=== PATIENT | male | born 1965 | race Caucasian/White ===

== ENCOUNTER 2017-06-17 11:24 | Emergency (ER) | payer OTHER ==
[~2017-06-17] VITALS: Ht 188 cm; Wt 82.6 kg
[~2017-06-17 11:24] MED LIST: ELIMITE5% TOP; TRIAMCINOL0.1 %/453 TOP
--- NOTE | 2017-06-17 12:15 | CT SCAN REPORT ---
EXAMINATION: CT HEAD WITHOUT CONTRAST CLINICAL INFORMATION: Severe headache right side. COMPARISON: Brain MRI 12/18/2008. TECHNIQUE: Contiguous axial imaging was performed from the skull base to vertex without intravenous administration of contrast. The study is degraded by [id number] motion artifact. DLP: 629 mGy-cm. FINDINGS: There is no intracranial hemorrhage, large infarction, or mass lesion. There is no mass effect or midline shift. There is no extra-axial collection. There is mild scattered and patchy hypoattenuation in the bilateral cerebral white matter, which is nonspecific but likely reflects small vessel disease. More focal patchy hypoattenuation in the right inferior parietal lobule may represent an old subcortical infarct. A polypoid lesion within the right nasal cavity measuring 1.3 cm and is most typical of a polyp and was also present in 2008. The paranasal sinuses and mastoid air cells are otherwise clear. There are atherosclerotic calcification of the carotid siphons and vertebral arteries. On the tube bender image there is evidence of prior anterior cervical discectomy and fusion spanning C5-C7. IMPRESSION: 1. No acute intracranial abnormality identified. 2. Mild small vessel ischemic changes. 3. Stable appearance of 1.3 cm polyp within the right nasal cavity.
[2017-06-17] MEDS ORDERED: CITALOPRAM HBR40 MG PO (13:00)
[2017-06-17] MEDS ORDERED: SIMVASTATIN40 M1 PO (13:00)
[2017-06-17] MEDS ORDERED: BUPROPION XL150 MG PO (13:01)
[2017-06-17] MEDS ORDERED: MIRTAZAPINE15 M2 PO (13:01)
--- NOTE | 2017-06-17 13:01 | ED GENERAL ADULT ---
History of Present Illness General Chief Complaint: General Adult Stated Complaint: SHARP PAIN IN RT SIDE OF HEAD Source: patient Exam Limitations: no limitations Vital Signs & Intake/Output Vital Signs & Intake/Output Vital Signs Date Time Temp Pulse Resp B/P B/P Pulse O2 O2 Flow FiO2 Mean Ox Delivery Rate 06/17 1648 76 18 109/57 100 Room Air ED Intake and Output 06/18 0000 06/17 1200 Intake Total 1000 Output Total Balance 1000 Intake, IV 1000 Patient 182 lb Weight Weight Reported by Patient Measurement Method Allergies Coded Allergies: No Known Allergies (06/17/17) Reconcile Medications Bupropion HCl (Bupropion XL) 150 MG TAB.ER.24H 1 TAB PO DAILY MENTAL HEALTH ( Reported) Butalb/Acetaminophen/Caffeine (Esgic Capsule) 50 MG-325 MG-40 MG CAPSULE 1 CAP PO Q6H PRN HEADACHE Citalopram Hydrobromide (Citalopram HBr) 40 MG TABLET 1 TAB PO DAILY DEPRESSION (Reported) Metoclopramide HCl (Reglan) 10 MG TABLET 1 TAB PO 4 TIMES/DAY PRN HEADACHE/ NAUSEA 30 minutes before meals and bedtime Mirtazapine 15 MG TABLET 1 TAB PO QPM SLEEP (Reported) Simvastatin (Simvastatin*) 40 MG TABLET 1 TAB PO QPM HIGH CHOLESTEROL ( Reported) Triage Note: PT TO ED FOR INTERMITTENT R SIDED SHARP HEAD PAIN THAT BEGAN 3 DAYS AGO, DENIES ANY ASSOCIATED BLURRY VISION, NAUSEA, VOMITING, DENIES ANY TRAUMA TOOK EXCEDERIN, ADVIL AND COLD THERAPY AT HOME WITH NO RELIEF. ALL NEUROS GROSSLY INTACT. Triage Nurses Notes Reviewed? yes Onset: Abrupt Duration: day(s): (3), changing over time, continues in ED, intermittent Timing: multiple episodes today Injury Environment: home Severity: moderate, severe Severity Numbers: 9 No Modifying Factors: none HPI: 51-year-old male past medical history of hyperlipidemia anxiety and depression presents for evaluation of a headache. Patient states that he first noticed the headache about 3 days ago and has been getting worse. The pain is located on the right side of the forehead and right temporal area. The pain described as sharp stabbing pain that is intermittent. The pain will come on every couple minutes last for several seconds and go away completely. The pain has been coming and going for the entire 3 days getting more frequent. He's never had this in the past. No previous history of headaches. There was no head trauma, neck pain, changes in vision or photophobia nausea, vomiting, rashes, fevers, chest pain, shortness of breath. Has been taking Excedrin ibuprofen and applying ice packs that any improvement. No nasal or eye discharge. No one- sided weakness, numbness, tingling. Past History Travel History Traveled to [place] past 21 day No Medical History Any Pertinent Medical History? see below for history Neurological: NONE EENT: NONE Cardiovascular: hyperlipidemia Respiratory: NONE Gastrointestinal: NONE Hepatic: NONE Renal: NONE Musculoskeletal: NONE Psychiatric: depression, insomnia Endocrine: NONE Blood Disorders: NONE Cancer(s): NONE Surgical History Surgical History: none Psychosocial History What is your primary language Libyan Tobacco Use: Current Daily Use Daily Tobacco Use Amount/Type: => 5 Cigarettes daily ETOH Use: occasional use Illicit Drug Use: denies illicit drug use Family History Hx Contributory? No Review of Systems Review of Systems Constitutional: Reports: no symptoms. EENTM: Reports: no symptoms. Respiratory: Reports: no symptoms. Cardiovascular: Reports: no symptoms. GI: Reports: no symptoms. Genitourinary: Reports: no symptoms. Musculoskeletal: Reports: no symptoms. Skin: Reports: no symptoms. Neurological/Psychological: Reports: headache. Hematologic/Endocrine: Reports: no symptoms. Immunologic/Allergic: Reports: no symptoms. All Other Systems: Reviewed and Negative Physical Exam Physical Exam General Appearance: well developed/nourished, alert, awake, anxious, moderate distress Head: atraumatic, normal appearance, NO PAIN WITH PALPATION Eyes: Bilateral: normal appearance, PERRL, EOMI. Ears, Nose, Throat: normal pharynx, normal ENT inspection, hearing grossly normal Neck: normal inspection, supple, full range of motion, NEGATIVE MENINGISMUS. nO jvd, NO CAROTID BRUITS Respiratory: normal breath sounds, chest non-tender, no respiratory distress, lungs clear Cardiovascular: regular rate/rhythm, normal peripheral pulses Peripheral Pulses: 2+ radial (R), 2+ radial (L) Gastrointestinal: soft, non-tender Back: normal inspection, normal range of motion, no vertebral tenderness Extremities: normal inspection, normal range of motion, no edema Neurologic/Psych: no motor/sensory deficits, awake, alert, oriented x 3, normal gait, normal mood/affect, CEREBELLAR FUNCTION IS INTACT Skin: intact, normal color, warm/dry Lymphatic: no anterior cervical george Core Measures ACS in differential dx? No CVA/TIA Diagnosis: No Sepsis Present: No Sepsis Focused Exam Completed? No Progress Differential Diagnoses I considered the following diagnoses in my evaluation of the patient: [Migraine headache, cluster headache, tension headache, subarachnoid hemorrhage, CVA, temporal arteritis, intracranial mass, meningitis] Plan of Care: Orders Procedure Date/time Status WESTERGREN SED RATE 06/17 UNK Complete OXYGEN SETUP (GEN) 06/17 1318 Active TROPONIN LEVEL 06/17 1304 Complete C-REACTIVE PROTEIN 06/17 1304 Complete COMPREHENSIVE METABOLIC PANEL 06/17 1304 Complete CBC WITHOUT DIFFERENTIAL 06/17 1304 Complete EKG 06/17 1301 Active Laboratory Tests 06/17/17 1346: ESR Westergren 18 H 06/17/17 1330: Anion Gap 14, Estimated GFR > 60, BUN/Creatinine Ratio 15.0, Glucose 73, Calcium 9.2, Total Bilirubin 0.5, AST 31, ALT 40, Alkaline Phosphatase 95, Troponin I < 0.01, C-Reactive Prot, Quant 0.7, Total Protein 7.5, Albumin 4.5, Globulin 3.0, Albumin/Globulin Ratio 1.5, CBC w Diff NO MAN DIFF REQ, RBC 5.60, MCV 84.2, MCH 29.0, MCHC 34.5, RDW 14.4, MPV 6.5 L, Gran % 55.4, Lymphocytes % 30.7, Monocytes % 10.8 H, Eosinophils % 2.7, Basophils % 0.4, Absolute Granulocytes 2.4, Absolute Lymphocytes 1.4, Absolute Monocytes 0.5, Absolute Eosinophils 0.1, Absolute Basophils 0 Patient seen and evaluated. He does have significant pain to the right side of his head. The pain is intermittent and coming every several minutes lasting for several seconds then going away. Patient is holding the right side of his head and appears to be in significant pain. He is tachycardic to the 120s. No chest pain shortness of breath or hemoptysis. No lower extremity edema. Patient will be medicated with fluids and 4 mg of IV morphine. Additionally he'll be given high flow oxygen. Patient is feeling significantly better after oxygen morphine and fluids. He states that the pain is much less intense and frequency is less however it still is very uncomfortable for him. He'll be given a dose of Reglan and Benadryl and then be reassessed. Blood work is within normal limits. CT scan of the brain is negative. CRP is negative sedimentation rate very mildly elevated. Patient is feeling much better after medications. He is no longer holding the side of the heaDS and he appears comfortable. He'll be given a prescription for Fioricet and Reglan. Advised him to continue Tylenol and Proventil as needed. Follow-up with primary care doctor. Discussed return precautions in detail. Patient is nontoxic- appearing and agrees the plan. Case discussed with Dr. Valentin he agrees. Diagnostic Imaging: Viewed by Me: CT Scan. Discussed w/RAD: CT Scan. Radiology Impression: PATIENT: KIRIT FLORES PRESENT AGE: 51 PATIENT ACCOUNT NO: [id number] : 63 LOCATION: [facility] ORDERING PHYSICIAN: Eduin HERNANDEZ SERVICE DATE: 06/17/17 EXAM TYPE: CAT - CT HEAD WO IV CONTRAST EXAMINATION: CT HEAD WITHOUT CONTRAST CLINICAL INFORMATION: Severe headache right side. COMPARISON: Brain MRI 12/18/2008. TECHNIQUE: Contiguous axial imaging was performed from the skull base to vertex without intravenous administration of contrast. The study is degraded by mild-to- moderate motion artifact. DLP: 629 mGy-cm. FINDINGS: There is no intracranial hemorrhage, large infarction, or mass lesion. There is no mass effect or midline shift. There is no extra-axial collection. There is mild scattered and patchy hypoattenuation in the bilateral cerebral white matter, which is nonspecific but likely reflects small vessel disease. More focal patchy hypoattenuation in the right inferior parietal lobule may represent an old subcortical infarct. A polypoid lesion within the right nasal cavity measuring 1.3 cm and is most typical of a polyp and was also present in 2008. The paranasal sinuses and mastoid air cells are otherwise clear. There are atherosclerotic calcification of the carotid siphons and vertebral arteries. On the sawmill moulder operator image there is evidence of prior anterior cervical discectomy and fusion spanning C5-C7. IMPRESSION: 1. No acute intracranial abnormality identified. 2. Mild small vessel ischemic changes. 3. Stable appearance of 1.3 cm polyp within the right nasal cavity. DICTATED BY: Maddison Hicks MD DATE/TIME DICTATED:06/17/171203 [employer] LABORER:SANJUANITA DATE/TIME TRANSCRIBED:01/26/18 / 1204 CONFIDENTIAL, DO NOT COPY WITHOUT APPROPRIATE AUTHORIZATION. Initial ED EKG: normal sinus rhythm, no ST T wave changes Departure Departure Disposition: HOME OR SELF CARE Condition: Stable Clinical Impression Primary Impression: Headache Qualifiers: Headache type: unspecified Headache chronicity pattern: acute headache Intractability: not intractable Qualified Code: R51 - Headache Referrals: Parag VENEGAS,Farzad Estrada (PCP/Family) Additional Instructions: Rest and drink plenty of fluids. Reglan can be use as needed for headaches in addition to ESGIC. Monitor symptoms closely. If you have worsening pain, fever , changes in vision, vomiting, shortness of breath, one-sided weakness or any other concerns return to emergency Department immediately. Make a follow-up with YOUr primary care doctor for this week. Departure Forms: Customer Survey General Discharge Information Prescriptions: Current Visit Scripts Butalb/Acetaminophen/Caffeine (Esgic Capsule) 1 CAP PO Q6H PRN HEADACHE #20 CAP Metoclopramide HCl (Reglan) 1 TAB PO 4 TIMES/DAY PRN HEADACHE/NAUSEA #30 TAB 30 minutes before meals and bedtime Critical Care Note Critical Care Note Critical Care Time: non-applicable
[2017-06-17 13:37] LABS: ABSOLUTE BASOPHIL COUNT 0 /CUMM (0.0-0.2); ABSOLUTE EOSINOPHIL COUNT 0.1 /CUMM (0.0-0.7); ABSOLUTE GRANULOCYTE CT 2.4 /CUMM (1.4-6.5); ABSOLUTE LYMPH COUNT 1.4 /CUMM (1.2-3.4); ABSOLUTE MONOCYTE COUNT 0.5 /CUMM (0.10-0.60); BASOPHIL % 0.4 % (0.0-2.0); EOSINOPHIL % 2.7 % (0-5); GRANULOCYTE % 55.4 % (42.2-75.2); HEMATOCRIT 47.1 % (42-52); MEAN CORPUSCULAR HGB CONC 34.5 G/DL (33.0-37.0); MEAN CORPUSCULAR VOLUME 84.2 FL (80.0-94.0); MEAN PLATELET VOLUME 6.5 FL (7.4-10.4); PLATELET COUNT 181 /CUMM (130-400); RBC DISTRIBUTION WIDTH 14.4 % (11.5-14.5); WHITE BLOOD CELL COUNT 4.4 /CUMM (4.8-10.8)
[2017-06-17] MEDS ORDERED: REGLAN10 M1 PO (16:38)
[2017-06-17] MEDS ORDERED: ESGIC CAPSULE1 EACH PO (16:38)
[2017-06-17 16:48] VITALS: BP 109/57
== END 2017-06-17 16:49 ==
LOC: ERH 11:24
PROVIDERS: Physician Assistant Medical
DX: R51 Headache (principal)
CPT/HCPCS: 93005; 93010; 96361; 96374; 96375; J1200; J2765